=== PATIENT | male | born 1955 | race Caucasian/White ===

== ENCOUNTER 2016-10-07 15:31 | Emergency (ER) | payer MEDICAID ==
[~2016-10-07] VITALS: Ht 170.2 cm; Wt 83.1 kg
[~2016-10-07 15:31] MED LIST: ASPI-496 PO; ATEN25TA PO; CARV-39 PO; CLOP75TA22 PO; LEVO100T5 PO; SIMV20TA3 PO; TRAM50TA2 PO
[2016-10-07 15:39] VITALS: BP 184/97
== END 2016-10-07 17:35 | disposition home or self-care (01) ==
LOC: ED 17:29
DX: M54.12 Radiculopathy, cervical region (principal); I10 Essential (primary) hypertension
CPT/HCPCS: 99283

== ENCOUNTER 2017-07-23 19:53 | Emergency (ER) | payer MEDICAID ==
[~2017-07-23] VITALS: Ht 170.2 cm; Wt 89.6 kg
[~2017-07-23 19:53] MED LIST changes: -CLOP75TA22 PO; +CLOP75TA52 PO
[2017-07-23 20:23] LABS: BASOPHILS # (AUTO) 0.03 x10^3/uL (0-0.1); BASOPHILS % (AUTO) 0 % (0-1); EOSINOPHILS # (AUTO) 0.25 x10^3/uL (0-0.4); EOSINOPHILS % (AUTO) 3 % (1-7); LYMPHOCYTES # (AUTO) 1.32 x10^3/uL (1-3.4); LYMPHOCYTES % (AUTO) 17 % (22-44); MD NO; MEAN CORPUSCULAR HEMOGLOBIN 31.6 pg (27.5-34.5); MEAN CORPUSCULAR HGB CONC 34.2 g/dL (33.2-36.2); MEAN CORPUSCULAR VOLUME 92.5 fL (81-97); MEAN PLATELET VOLUME 7.6 fL (7.4-10.4); MONOCYTES # (AUTO) 0.94 x10^3/uL (0.2-0.8); MONOCYTES % (AUTO) 12 % (2-9); NEUTROPHILS # (AUTO) 5.28 x10^3/uL (1.8-6.8); NEUTROPHILS % (AUTO) 68 % (42-75); PLATELET COUNT 248 x10^3/uL (130-400); RED BLOOD COUNT 4.95 x10^6/uL (4.38-5.82); RED CELL DISTRIBUTION WIDTH 12.9 % (9.4-14.8)
[2017-07-23 20:24] LABS: MICROSCOPIC AUTO
[2017-07-23 20:28] LABS: INTERNATIONAL NORMALIZED RATIO 1.43 (0.93-1.1); PROTHROMBIN TIME 14.6 Seconds (9.6-11.5)
[2017-07-23 20:30] LABS: CULTURE INDICATED? NO
[2017-07-23] MEDS ORDERED: ONDANSETRON ODT 8 MG PO ONE (20:30)
[2017-07-23] MEDS ORDERED: SODIUM CHLORIDE FLUSH 10ML SYR IVF ONE (20:30)
[2017-07-23] MEDS ORDERED: MORPHINE SULFATE 4 MG/ML, 1ML IVPush PRN (20:30)
[2017-07-23] MEDS ORDERED: SODIUM CHLORIDE 0.9% 1,000ML IVBOLUS ONE (20:30)
[2017-07-23 20:33] LABS: ALANINE AMINOTRANSFERASE 31 U/L (12-78); ALBUMIN 3.4 g/dL (3.4-5.0); ANION GAP 9 mmol/L (5-15); CALCIUM 8.6 mg/dL (8.5-10.1); CHLORIDE 110 mmol/L (98-107); CREATININE 1.19 mg/dL (0.7-1.3)
[2017-07-23 20:35] LABS: ALKALINE PHOSPHATASE 66 U/L (45-117); BILIRUBIN,TOTAL 0.4 mg/dL (0.2-1.0)
[2017-07-23] MEDS ORDERED: MORPHINE SULFATE 4 MG/ML, 1ML ONE (20:36)
[2017-07-23] MEDS ORDERED: ONDANSETRON ODT 8 MG ONE (20:36)
[2017-07-23] MEDS ORDERED: ENAL20TA PO (21:06)
[2017-07-23] MEDS ORDERED: RIVA15TA PO (21:06)
[2017-07-23] MEDS ORDERED: CLOM50TA2 PO (21:06)
[2017-07-23] MEDS ORDERED: LORA10TA62 PO (21:06)
[2017-07-23] MEDS ORDERED: CHOL500045 PO (21:07)
[2017-07-23 21:38] VITALS: BP 154/82
== END 2017-07-23 21:42 | disposition home or self-care (01) ==
LOC: ED 21:35
DX: K80.20 Calculus of gallbladder without cholecystitis without obstruction (principal); G89.29 Other chronic pain; M54.9 Dorsalgia, unspecified; I10 Essential (primary) hypertension; I25.2 Old myocardial infarction; Z95.5 Presence of coronary angioplasty implant and graft
CPT/HCPCS: 36415; 76700; 80053; 81001; 83690; 85025; 85610; 96361; 96374; 99285; J7030; Q0162

== ENCOUNTER 2017-12-04 09:54 | Observation (INO) | payer MEDICAID ==
[~2017-12-04] VITALS: Ht 170.2 cm; Wt 82.6 kg
[~2017-12-04 09:54] MED LIST changes: +CHOL500045 PO; +CLOM50TA17 PO; +ENAL20TA PO; +LORA10TA62 PO; +RIVA15TA PO
[2017-12-04] MEDS ORDERED: KETOROLAC 30 MG/1 ML IVPush ONE (10:30)
[2017-12-04] MEDS ORDERED: SODIUM CHLORIDE FLUSH 10ML SYR IVF ONE (10:30)
[2017-12-04] MEDS ORDERED: ASPIRIN 81 MG TABLET CHEW PO ONE (10:30)
[2017-12-04] MEDS ORDERED: KETOROLAC 30 MG/1 ML ONE (10:40)
[2017-12-04] MEDS ORDERED: ASPIRIN 81 MG TABLET CHEW ONE (10:40)
[2017-12-04 10:59] LABS: BASOPHILS # (AUTO) 0.02 x10^3/uL (0-0.1); BASOPHILS % (AUTO) 0 % (0-1); EOSINOPHILS # (AUTO) 0.15 x10^3/uL (0-0.4); EOSINOPHILS % (AUTO) 2 % (1-7); LYMPHOCYTES # (AUTO) 0.81 x10^3/uL (1-3.4); LYMPHOCYTES % (AUTO) 10 % (22-44); MD NO; MEAN CORPUSCULAR HEMOGLOBIN 32.4 pg (27.5-34.5); MEAN CORPUSCULAR HGB CONC 33.9 g/dL (33.2-36.2); MEAN CORPUSCULAR VOLUME 95.8 fL (81-97); MEAN PLATELET VOLUME 7.4 fL (7.4-10.4); MONOCYTES # (AUTO) 0.53 x10^3/uL (0.2-0.8); MONOCYTES % (AUTO) 7 % (2-9); NEUTROPHILS # (AUTO) 6.33 x10^3/uL (1.8-6.8); NEUTROPHILS % (AUTO) 81 % (42-75); PLATELET COUNT 241 x10^3/uL (130-400); RED BLOOD COUNT 4.85 x10^6/uL (4.38-5.82); RED CELL DISTRIBUTION WIDTH 13.3 % (9.4-14.8)
[2017-12-04 11:01] LABS: ALBUMIN 3.5 g/dL (3.4-5.0); ANION GAP 8 mmol/L (5-15); CALCIUM 8.6 mg/dL (8.5-10.1); CHLORIDE 109 mmol/L (98-107); CREATININE 1.07 mg/dL (0.7-1.3)
[2017-12-04 11:10] LABS: TROPONIN I 0.262 ng/mL (0.000-0.045)
[2017-12-04] MEDS ORDERED: MORPHINE SULFATE 4 MG/ML, 1ML IVPush PRN (11:30)
[2017-12-04] MEDS ORDERED: ONDANSETRON ODT 4 MG ONE (11:35)
[2017-12-04] MEDS ORDERED: MORPHINE SULFATE 4 MG/ML, 1ML ONE (11:35)
[2017-12-04] MEDS ORDERED: ONDANSETRON ODT 4 MG PO ONE (12:00)
[2017-12-04] MEDS ORDERED: ASPIRIN 325 MG TABLET PO STA (12:51)
[2017-12-04] MEDS ORDERED: OMNIPAQUE 350 MG/ML, 100ML BOTTLE ONE (12:53)
[2017-12-04] MEDS ORDERED: ASPIRIN 325 MG TABLET ONE (13:08)
[2017-12-04] MEDS ORDERED: CLOMIPHENE CITRATE 50 MG PO SCH (13:30)
[2017-12-04] MEDS ORDERED: methylPREDNISolone 4mg DOSE PACK PO SCH (14:00)
[2017-12-04] MEDS ORDERED: NITROGLYCERIN SINGLE TAB 0.4 MG SL PRN (14:00)
[2017-12-04] MEDS ORDERED: ACETAMINOPHEN 650 MG/20.3 ML UDC PO PRN (14:00)
[2017-12-04] MEDS ORDERED: NITROGLYCERIN 0.4 MG/SPRAY SL PRN (14:00)
[2017-12-04] MEDS ORDERED: NITROGLYCERIN 0.4 MG BOTTLE (25 TABS) SL PRN (14:00)
[2017-12-04] MEDS ORDERED: ENALAPRILAT 1.25 MG/ML, 2ML IV PRN (14:00)
[2017-12-04] MEDS ORDERED: morphine SULFATE 10 MG/ML, 1ML IV PRN (14:00)
[2017-12-04] MEDS ORDERED: LIDODERM 5% PATCH TD SCH (14:00)
[2017-12-04] MEDS ORDERED: ONDANSETRON 2MG/ML, 2ML IVP PRN (14:00)
[2017-12-04] MEDS ORDERED: methylPREDNISolone 4mg DOSE PACK ONE (14:51)
[2017-12-04 14:56] LABS: HEMOGLOBIN A1C 5.7 % (4.2-6.3)
[2017-12-04 15:20] VITALS: BP 152/84
[2017-12-04] MEDS ORDERED: METHOCARBAMOL 500 MG TABLET PO SCH (16:00)
[2017-12-04] MEDS ORDERED: RIVAROXABAN 15 MG TABLET PO SCH (17:00)
[2017-12-04 17:16] LABS: TROPONIN I 0.257 ng/mL (0.000-0.045)
[2017-12-04] MEDS ORDERED: CARVEDILOL 12.5 MG TABLET PO SCH (21:00)
[2017-12-04] MEDS ORDERED: SIMVASTATIN 20 MG TABLET PO SCH (21:00)
[2017-12-04] MEDS ORDERED: SODIUM CHLORIDE FLUSH 10ML SYR IVF SCH (21:00)
[2017-12-05] MEDS ORDERED: ASPIRIN 325 MG TABLET EC PO SCH (06:00)
[2017-12-05] MEDS ORDERED: LEVOTHYROXINE 100 MCG TABLET PO SCH (09:00)
[2017-12-05] MEDS ORDERED: CHOLECALCIFEROL 5,000u TAB PO SCH (09:00)
== END 2017-12-05 03:43 | disposition left against medical advice (07) ==
LOC: ED 11:02 → INTOOBSV 13:18 → EDIP 13:18 → 5SO 14:27
PROVIDERS: ADMIT Hospitalist; ATTEND Hospitalist
DX: M54.2 Cervicalgia (principal); R79.89 Other specified abnormal findings of blood chemistry; I10 Essential (primary) hypertension; E03.9 Hypothyroidism, unspecified; E78.5 Hyperlipidemia, unspecified; J30.9 Allergic rhinitis, unspecified; E78.00 Pure hypercholesterolemia, unspecified; K76.0 Fatty (change of) liver, not elsewhere classified; M54.12 Radiculopathy, cervical region; I25.10 Atherosclerotic heart disease of native coronary artery without angina pectoris; G89.29 Other chronic pain; Z79.01 Long term (current) use of anticoagulants; Z80.1 Family history of malignant neoplasm of trachea, bronchus and lung; Z82.49 Family history of ischemic heart disease and other diseases of the circulatory system; Z82.5 Family history of asthma and other chronic lower respiratory diseases; Z86.718 Personal history of other venous thrombosis and embolism; Z95.5 Presence of coronary angioplasty implant and graft; Z79.82 Long term (current) use of aspirin
CPT/HCPCS: 36415; 71045; 71275; 72050; 74175; 80048; 82040; 83036; 83880; 84443; 84484; 85025; 93005; 96374; 96375; 99285; G0378; J1885; J7509; Q0162; Q9967

== ENCOUNTER 2018-07-17 17:41 | Emergency (ER) | payer MEDICAID ==
[~2018-07-17] VITALS: Ht 170.2 cm; Wt 77.4 kg
[2018-07-17] MEDS ORDERED: ATOR40TA PO (18:18)
--- NOTE | 2018-07-17 18:22 | NUR ---
NUVIA VALADEZ AWARE OF BP OF 213/130. PT DENIES CHAVEZ, VISION CHANGES, DIZZINESS, SOB, OR CP. PT AO X 4. PT REPORTS HE HAS BEEN COMPLIANT WITH HIS BP MEDS, BUT RAN OUT OF HIS PAIN MEDS TODAY. PT REPORTS HE HAS BEEN TAKING EXTRA D/T HIS PAIN BEING WORSE OVER THE LAST WEEK OR SO. PT HAS APPT ON 07/29 WITH PAIN MANAGEMENT MD.
[2018-07-17 18:36] VITALS: BP 190/84
== END 2018-07-17 18:39 | disposition home or self-care (01) ==
LOC: ED 18:36
DX: G89.29 Other chronic pain (principal); I10 Essential (primary) hypertension; M54.9 Dorsalgia, unspecified; E78.00 Pure hypercholesterolemia, unspecified; Z76.0 Encounter for issue of repeat prescription
CPT/HCPCS: 99283